=== PATIENT | female | born 1985 | race African-American/Black ===

== ENCOUNTER 2017-06-06 20:18 | Inpatient (IN) | payer OTHER ==
[~2017-06-06] VITALS: Ht 162.6 cm; Wt 67.5 kg
[2017-06-06 20:38] VITALS: BP 102/73
[2017-06-06 21:14] VITALS: BP 102/58
[2017-06-06 21:29] VITALS: BP 104/61
[2017-06-06] MEDS ORDERED: MOTRIN800 MG PO (21:38)
[2017-06-06 21:52] VITALS: BP 106/65
[2017-06-06 22:05] LABS: BASOPHIL (%) 0.1 % (0-1); EOSINOPHIL (%) 0.1 % (0-5); HEMATOCRIT 38.7 % (36.0-46.0); HEMOGLOBIN 12.8 G/DL (11.9-15.5); IMMATURE GRANULOCYTE (%) 0.5 % (0.0-0.7); LYMPHOCYTE (%) 8.5 % (15-42); LYMPHOCYTE COUNT 0.7 K/uL (1.0-2.8); MCH 30.5 PG (29.0-34.0); MCHC 33.1 G/DL (30.0-36.0); MCV 92.1 FL (83-99); MONOCYTE (%) 4.1 % (3-12); MONOCYTE COUNT 0.3 K/uL (0-0.8); NEUTROPHIL (%) 86.7 % (45-76); NEUTROPHIL COUNT 7.2 K/uL (1.8-6.4); PLATELET COUNT 113 K/uL (156-360); RBC DIS.WIDTH-CV 14.2 % (11.8-14.6); RBC DIS.WIDTH-SD 47.9 % (39-53); WHITE BLOOD COUNT 8.3 K/uL (4.1-10.2)
[2017-06-06 22:07] VITALS: BP 131/62
[2017-06-06] MEDS ORDERED: PRENATAL TABLE1 EAC3 PO (22:49)
[2017-06-06 23:08] VITALS: BP 101/62
[2017-06-07 00:11] VITALS: BP 104/63
[2017-06-07 07:00] VITALS: BP 109/65
[2017-06-07 14:50] VITALS: BP 92/50
[2017-06-07 23:20] VITALS: BP 102/62
[2017-06-08 06:57] VITALS: BP 108/72
[2017-06-08] MEDS ORDERED: PUMP IN STYLE1 EACH MC (14:37)
== END 2017-06-08 15:20 | disposition home or self-care (01) | DRG 775 ==
LOC: LDRP-OP 20:18 → 2WEST 20:19
PROVIDERS: Nurse Practitioner
DX: O99.824 Streptococcus B carrier state complicating childbirth (principal); Z3A.38 38 weeks gestation of pregnancy; Z37.0 Single live birth; O62.3 Precipitate labor; O70.0 First degree perineal laceration during delivery
CPT/HCPCS: 85025; J7120